=== PATIENT | male | born 1965 | race Caucasian/White ===

== ENCOUNTER 2018-01-30 18:36 | Inpatient (IN) | payer OTHER ==
[~2018-01-30] VITALS: Ht 185.4 cm; Wt 125.2 kg
[~2018-01-30 18:36] MED LIST: CLEOCIN300 MG PO; LORTAB 5-325 M1 EACH PO; NAPROSYN500 MG PO; ZITHROMAX TRI-500 MG PO
[2018-01-30 19:13] LABS: PLATELET COUNT 590 K/uL (156-360)
[2018-01-30 19:30] LABS: HEMOGLOBIN 12.6 G/DL (12.5-16.6); MCH 29.8 PG (29.0-34.0); MCV 85.1 FL (86-99); RBC DIS.WIDTH-CV 14.5 % (11.8-14.6); RBC DIS.WIDTH-SD 44.9 % (39-53); RED BLOOD COUNT 4.23 M/uL (4.00-5.50)
[2018-01-30 19:32] LABS: WHITE BLOOD COUNT 33.9 K/uL (4.1-10.2)
[2018-01-30 19:34] LABS: TROP-I INTERPRETATION INDETERMINATE; TROPONIN-I 0.46 ng/mL (0.0-0.30)
[2018-01-30 19:55] LABS: ALBUMIN 2.9 g/dL (3.2-4.8); CHLORIDE 94 mEq/L (99-109); POTASSIUM 4.7 mEq/L (3.7-5.4); SODIUM 132 mEq/L (136-147)
[2018-01-30 19:57] LABS: GLUCOSE 123 mg/dL (70-99)
[2018-01-30 19:58] LABS: TOTAL PROTEIN 7.4 g/dL (6.4-8.3)
[2018-01-30 19:59] LABS: TOTAL BILIRUBIN 1.2 mg/dL (0.0-1.0)
[2018-01-30 20:01] LABS: CREATININE 2.1 mg/dL (0.6-1.3); GFR ESTIMATE (CALCULATED) 36 mL/min/ (58.99-99999)
[2018-01-30 20:02] LABS: ALKALINE PHOSPHATASE 173 IU/L (3-129)
[2018-01-30 20:03] LABS: AST (GOT) 124 IU/L (2-34); UREA NITROGEN (BUN) 45 mg/dL (9-23)
[2018-01-30 20:04] LABS: SALICYLATE < 5.0 MG/DL (15-30)
[2018-01-30 20:05] LABS: ACETAMINOPHEN (TYLENOL) < 10 mcg/mL (10-30); ALT (GPT) 173 IU/L (3-49)
[2018-01-30 20:06] LABS: LIPASE 38 U/L (1.0-51.0)
[2018-01-30 20:20] LABS: CREATINE KINASE 463 IU/L (1-294)
[2018-01-30 23:49] LABS: MCV 87.1 FL (86-99)
[2018-01-30 23:54] LABS: APPEARANCE CLOUDY ((CLEAR)); BILIRUBIN NEGATIVE; BLOOD LARGE; COLOR AMBER ((YELLOW)); GLUCOSE (STRIP) NEGATIVE; KETONES NEGATIVE; LEUKOCYTES NEGATIVE; NITRITE NEGATIVE; PROTEIN (STRIP) 100; SPECIFIC GRAVITY 1.018 (1.000-1.030)
[2018-01-30 23:59] LABS: CHLORIDE 98 mEq/L (99-109); POTASSIUM 4.4 mEq/L (3.7-5.4); SODIUM 133 mEq/L (136-147)
[2018-01-30 23:59] LABS: BACTERIA RARE /HPF; EPITHELIAL CELLS RARE /HPF; HYALINE CASTS 0-5 /LPF; MUCUS NONE SEEN /LPF; RED BLOOD CELLS TNTC /HPF (0-5); UCUL ADDED? YES
[2018-01-31] VITALS (24 sets, daily range): BP systolic 92–149; BP diastolic 39–56
[2018-01-31 00:01] LABS: GLUCOSE 135 mg/dL (70-99)
[2018-01-31 00:02] LABS: AMPHETAMINE NEGATIVE (500 ng/mL); BARBITURATES NEGATIVE (200 ng/mL); BENZODIAZEPINES NEGATIVE (150 ng/mL); BUPRENORPHINE NEGATIVE (10 ng/mL); COCAINE NEGATIVE (150 ng/mL); METHADONE PRESUMPTIVE POSITIVE (200 ng/mL); METHAMPHETAMINE NEGATIVE (500 ng/mL); OPIATES (MORPHINE) NEGATIVE (100 ng/mL); OXYCODONE NEGATIVE (100 ng/mL); PHENCYCLIDINE NEGATIVE (25 ng/mL); PROPOXYPHENE NEGATIVE (300 ng/mL); THC CANNABINOIDS NEGATIVE (50 ng/mL); TRICYCLIC ANTIDEPRESSANTS NEGATIVE (300 ng/mL)
[2018-01-31 00:05] LABS: CREATININE 1.8 mg/dL (0.6-1.3); GFR ESTIMATE (CALCULATED) 43 mL/min/ (58.99-99999); UREA NITROGEN (BUN) 41 mg/dL (9-23)
[2018-01-31 00:07] LABS: ACETAMINOPHEN (TYLENOL) < 10 mcg/mL (10-30)
[2018-01-31 00:50] LABS: TROP-I INTERPRETATION INDETERMINATE; TROPONIN-I 0.42 ng/mL (0.0-0.30)
[2018-01-31 01:10] LABS: BASE EXCESS -1.1 mEq/L (-3 to +3); BICARBONATE 26.3 mEq/L (22-26); METHEMOGLOBIN 1.8 % (0-1.5); PCO2 56 mm Hg (35-45); PO2 60 mm Hg (80-100); pH 7.28 (7.35-7.45)
[2018-01-31 01:11] LABS: COMMENTS - BLOOD GASES C+; DEVICE VENT; FI02 100 %; MECHANICAL RATE 18 resp/min; MODE AC; PEEP 5 CM/H20; SITE RR; TIDAL VOLUME 500 ML; TOTAL RESP RATE 21 resp/min
[2018-01-31 04:20] LABS: HEMATOCRIT 30.4 % (38.0-50.0); HEMOGLOBIN 10.1 G/DL (12.5-16.6); MCH 29.2 PG (29.0-34.0); MCHC 33.2 G/DL (30.0-36.0); MCV 87.9 FL (86-99); RBC DIS.WIDTH-CV 14.5 % (11.8-14.6); RBC DIS.WIDTH-SD 46.7 % (39-53); RED BLOOD COUNT 3.46 M/uL (4.00-5.50); WHITE BLOOD COUNT 32.4 K/uL (4.1-10.2)
[2018-01-31 04:23] LABS: INTER. NORMALIZED RATIO 1.7
[2018-01-31 04:26] LABS: ALBUMIN 2.3 g/dL (3.2-4.8); CHLORIDE 100 mEq/L (99-109); POTASSIUM 4.4 mEq/L (3.7-5.4); SODIUM 133 mEq/L (136-147)
[2018-01-31 04:27] LABS: MAGNESIUM 1.9 mg/dL (1.3-2.7)
[2018-01-31 04:29] LABS: GLUCOSE 118 mg/dL (70-99)
[2018-01-31 04:33] LABS: CREATININE 1.8 mg/dL (0.6-1.3); GFR ESTIMATE (CALCULATED) 43 mL/min/ (58.99-99999)
[2018-01-31 04:34] LABS: AST (GOT) 89 IU/L (2-34); UREA NITROGEN (BUN) 40 mg/dL (9-23)
[2018-01-31 04:35] LABS: ALT (GPT) 122 IU/L (3-49)
[2018-01-31 04:37] LABS: ALKALINE PHOSPHATASE 128 IU/L (3-129); TOTAL BILIRUBIN 0.7 mg/dL (0.0-1.0); TOTAL PROTEIN 5.9 g/dL (6.4-8.3)
[2018-01-31 05:20] LABS: HEMATOLOGY COMMENT 1 SN; PLAT.SUFFICIENCY ADEQUATE
[2018-01-31 05:21] LABS: PLATELET COUNT UNABLE TO REPORT K/uL (156-360)
[2018-01-31 06:13] LABS: BASE EXCESS 0.3 mEq/L (-3 to +3); BICARBONATE 25.4 mEq/L (22-26); CARBOXY HGB 1.5 % (0-5); COMMENTS - BLOOD GASES C+; DEVICE VENT; FI02 100 %; METHEMOGLOBIN 1.8 % (0-1.5); PCO2 42 mm Hg (35-45); PO2 179 mm Hg (80-100); SITE RR; pH 7.39 (7.35-7.45)
[2018-01-31 06:14] LABS: MECHANICAL RATE 22 resp/min; MODE AC; PEEP 10 CM/H20; TIDAL VOLUME 500 ML; TOTAL RESP RATE 22 resp/min
[2018-01-31 07:44] LABS: TROP-I INTERPRETATION INDETERMINATE; TROPONIN-I 0.47 ng/mL (0.0-0.30)
[2018-01-31] MEDS ORDERED: METHADONE10 MG PO (12:13)
[2018-01-31] MEDS ORDERED: OXYCODONE HCL30 MG PO (12:14)
[2018-01-31 16:07] LABS: INTER. NORMALIZED RATIO 1.5
[2018-01-31 16:09] LABS: PTT 24.8 SEC (25-37)
[2018-02-01] VITALS (28 sets, daily range): BP systolic 96–142; BP diastolic 40–68
[2018-02-01 05:35] LABS: HEMATOCRIT 28.5 % (38.0-50.0); HEMOGLOBIN 9.1 G/DL (12.5-16.6); MCH 28.8 PG (29.0-34.0); MCHC 31.9 G/DL (30.0-36.0); MCV 90.2 FL (86-99); PLATELET COUNT 376 K/uL (156-360); RBC DIS.WIDTH-CV 14.9 % (11.8-14.6); RBC DIS.WIDTH-SD 49.1 % (39-53); RED BLOOD COUNT 3.16 M/uL (4.00-5.50); WHITE BLOOD COUNT 20.8 K/uL (4.1-10.2)
[2018-02-01 06:24] LABS: ALKALINE PHOSPHATASE 88 IU/L (3-129); ALT (GPT) 79 IU/L (3-49); AST (GOT) 70 IU/L (2-34); CHLORIDE 105 MEQ/L (99-109); CREATININE 1.4 MG/DL (0.6-1.3); GFR ESTIMATE (CALCULATED) 57 mL/min/ (58.99-99999); GLUCOSE 131 mg/dL (70-99); MAGNESIUM 2.3 mg/dl (1.3-2.7); PHOSPHORUS 3.1 mg/dL (2.5-4.9); POTASSIUM 4.8 MEQ/L (3.7-5.4); SODIUM 138 MEQ/L (136-147); TOTAL BILIRUBIN 0.5 MG/DL (0.0-1.0); TOTAL PROTEIN 5.1 G/DL (6.4-8.3); UREA NITROGEN (BUN) 34 mg/dL (9-23)
[2018-02-01 18:06] LABS: CSF PROTEIN 115 mg/dL (15-45)
[2018-02-01 18:17] LABS: APPEARANCE SL.HAZY/COLORLESS; CSF TUBE NUMBER TUBE #4; RED CELL COUNT 18 /MM^3 (0-1); WHITE CELL COUNT 315 /MM^3 (0-5)
[2018-02-01 18:56] LABS: CSF EOSINOPHILS 0 % (0-25); MONONUCLEAR WBC'S 54 % (50-90); POLYNUCLEAR WBC'S 46 % (0-3)
[2018-02-01 19:01] LABS: BODY FLUID GLUCOSE 59 MG/DL
[2018-02-01 19:04] LABS: APPEARANCE (RECHECK) SL.HAZY/COLORLESS; CSF TUBE NUMBER (RECHECK) TUBE #1
[2018-02-01 19:05] LABS: RED CELL COUNT (RECHECK) 28 /MM^3 (0-1)
[2018-02-02] VITALS (23 sets, daily range): BP systolic 114–165; BP diastolic 45–69
[2018-02-03] VITALS (23 sets, daily range): BP systolic 104–151; BP diastolic 45–65
[2018-02-03 06:22] LABS: BICARBONATE 22.2 mEq/L (22-26); CARBOXY HGB 1.6 % (0-5); COMMENTS - BLOOD GASES C+; DEVICE VENT; FI02 50 %; INSPIRATION TIME 0.7 seconds; MECHANICAL RATE 22 resp/min; METHEMOGLOBIN 1.5 % (0-1.5); MODE AC VC+; PCO2 35 mm Hg (35-45); PO2 74 mm Hg (80-100); SITE RR; TIDAL VOLUME 500 ML; TOTAL RESP RATE 26 resp/min; pH 7.41 (7.35-7.45)
[2018-02-03 06:23] LABS: PEEP 14 CM/H20
[2018-02-03 11:18] LABS: HEPATITIS B SURFACE ANTIGEN Nonreactive; HEPATITIS C ANTIBODY Nonreactive
[2018-02-04] VITALS (23 sets, daily range): BP systolic 117–144; BP diastolic 45–62
[2018-02-04 06:53] LABS: HEMATOCRIT 27.4 % (38.0-50.0); HEMOGLOBIN 8.8 G/DL (12.5-16.6); MCHC 32.1 G/DL (30.0-36.0); MCV 90.4 FL (86-99); PLATELET COUNT 361 K/uL (156-360); RBC DIS.WIDTH-CV 15.1 % (11.8-14.6); RBC DIS.WIDTH-SD 50.2 % (39-53); RED BLOOD COUNT 3.03 M/uL (4.00-5.50); WHITE BLOOD COUNT 12.1 K/uL (4.1-10.2)
[2018-02-04 07:16] LABS: ALBUMIN 2.3 G/DL (3.2-4.8); ALKALINE PHOSPHATASE 63 IU/L (3-129); ALT (GPT) 64 IU/L (3-49); AST (GOT) 62 IU/L (2-34); CHLORIDE 111 MEQ/L (99-109); CREATININE 1.3 MG/DL (0.6-1.3); DIRECT BILIRUBIN 0.1 mg/dL (0.0-0.3); GFR ESTIMATE (CALCULATED) > 59 mL/min/ (58.99-99999); GLUCOSE 147 mg/dL (70-99); POTASSIUM 5.2 MEQ/L (3.7-5.4); SODIUM 143 MEQ/L (136-147); TOTAL BILIRUBIN 0.4 MG/DL (0.0-1.0); TOTAL PROTEIN 5.4 G/DL (6.4-8.3); UREA NITROGEN (BUN) 51 mg/dL (9-23)
[2018-02-04 22:15] LABS: HEMATOCRIT 29.2 % (38.0-50.0); HEMOGLOBIN 9.2 G/DL (12.5-16.6); MCH 28.3 PG (29.0-34.0); MCHC 31.5 G/DL (30.0-36.0); MCV 89.8 FL (86-99); PLATELET COUNT 381 K/uL (156-360); RBC DIS.WIDTH-CV 14.9 % (11.8-14.6); RBC DIS.WIDTH-SD 49.2 % (39-53); RED BLOOD COUNT 3.25 M/uL (4.00-5.50); WHITE BLOOD COUNT 15.1 K/uL (4.1-10.2)
[2018-02-04 22:26] LABS: BASE EXCESS -1.3 mEq/L (-3 to +3); BICARBONATE 22.2 mEq/L (22-26); CARBOXY HGB 1.6 % (0-5); METHEMOGLOBIN 1.5 % (0-1.5); PCO2 32 mm Hg (35-45); PO2 65 mm Hg (80-100); pH 7.45 (7.35-7.45)
[2018-02-04 22:27] LABS: COMMENTS - BLOOD GASES C+A+; DEVICE VENT; FI02 40 %; INSPIRATION TIME 0.7 seconds; MECHANICAL RATE 22 resp/min; MODE AC; PEEP 8 CM/H20; SITE RR; TIDAL VOLUME 500 ML; TOTAL RESP RATE 31 resp/min
[2018-02-04 22:27] LABS: CHLORIDE 112 MEQ/L (99-109); POTASSIUM 4.8 MEQ/L (3.7-5.4); SODIUM 141 MEQ/L (136-147)
[2018-02-04 22:32] LABS: CREATININE 1.1 MG/DL (0.6-1.3); GFR ESTIMATE (CALCULATED) > 59 mL/min/ (58.99-99999); GLUCOSE 156 mg/dL (70-99); UREA NITROGEN (BUN) 52 mg/dL (9-23)
[2018-02-05] VITALS (23 sets, daily range): BP systolic 110–160; BP diastolic 42–63
[2018-02-05 05:17] LABS: BASOPHIL (%) 0.1 % (0-1); EOSINOPHIL (%) 0.1 % (0-5); HEMOGLOBIN 9.1 G/DL (12.5-16.6); IMMATURE GRANULOCYTE (%) 1.4 % (0.0-0.7); LYMPHOCYTE (%) 5.3 % (15-42); LYMPHOCYTE COUNT 0.8 K/uL (1.0-2.8); MCH 28.7 PG (29.0-34.0); MCHC 31.4 G/DL (30.0-36.0); MCV 91.5 FL (86-99); MONOCYTE (%) 4.5 % (3-12); MONOCYTE COUNT 0.7 K/uL (0-0.8); NEUTROPHIL (%) 88.6 % (45-76); NEUTROPHIL COUNT 13.2 K/uL (1.8-6.4); PLATELET COUNT 357 K/uL (156-360); RBC DIS.WIDTH-CV 15.2 % (11.8-14.6); RBC DIS.WIDTH-SD 50.6 % (39-53); RED BLOOD COUNT 3.17 M/uL (4.00-5.50)
[2018-02-05 05:58] LABS: ALBUMIN 2.3 G/DL (3.2-4.8); ALKALINE PHOSPHATASE 59 IU/L (3-129); ALT (GPT) 74 IU/L (3-49); AST (GOT) 52 IU/L (2-34); CHLORIDE 109 MEQ/L (99-109); CREATININE 1.1 MG/DL (0.6-1.3); GFR ESTIMATE (CALCULATED) > 59 mL/min/ (58.99-99999); GLUCOSE 136 mg/dL (70-99); MAGNESIUM 2.5 mg/dl (1.3-2.7); PHOSPHORUS 4.8 mg/dL (2.5-4.9); POTASSIUM 5.1 MEQ/L (3.7-5.4); SODIUM 141 MEQ/L (136-147); TOTAL BILIRUBIN 0.3 MG/DL (0.0-1.0); TOTAL PROTEIN 5.4 G/DL (6.4-8.3); UREA NITROGEN (BUN) 52 mg/dL (9-23)
[2018-02-06] VITALS (22 sets, daily range): BP systolic 114–152; BP diastolic 43–61
[2018-02-06 10:13] LABS: C DIFF TOXIN NEGATIVE (NEGATIVE)
[2018-02-06 19:21] LABS: BASOPHIL (%) 0.1 % (0-1); EOSINOPHIL (%) 0 % (0-5); HEMATOCRIT 30.8 % (38.0-50.0); HEMOGLOBIN 9.7 G/DL (12.5-16.6); LYMPHOCYTE COUNT 0.6 K/uL (1.0-2.8); MCH 28.4 PG (29.0-34.0); MCHC 31.5 G/DL (30.0-36.0); MCV 90.1 FL (86-99); MONOCYTE (%) 4.7 % (3-12); MONOCYTE COUNT 0.8 K/uL (0-0.8); NEUTROPHIL (%) 89.2 % (45-76); NEUTROPHIL COUNT 14.2 K/uL (1.8-6.4); PLATELET COUNT 344 K/uL (156-360); RBC DIS.WIDTH-SD 49.5 % (39-53); RED BLOOD COUNT 3.42 M/uL (4.00-5.50); WHITE BLOOD COUNT 15.9 K/uL (4.1-10.2)
[2018-02-07] VITALS (18 sets, daily range): BP systolic 122–173; BP diastolic 51–73
[2018-02-07 05:05] LABS: BASOPHIL (%) 0.1 % (0-1); EOSINOPHIL (%) 0 % (0-5); HEMATOCRIT 30.3 % (38.0-50.0); HEMOGLOBIN 9.7 G/DL (12.5-16.6); IMMATURE GRANULOCYTE (%) 2.3 % (0.0-0.7); LYMPHOCYTE (%) 6.9 % (15-42); MCH 29.2 PG (29.0-34.0); MCV 91.3 FL (86-99); MONOCYTE (%) 6.1 % (3-12); MONOCYTE COUNT 0.9 K/uL (0-0.8); NEUTROPHIL (%) 84.6 % (45-76); NEUTROPHIL COUNT 11.8 K/uL (1.8-6.4); PLATELET COUNT 322 K/uL (156-360); RBC DIS.WIDTH-CV 15.2 % (11.8-14.6); RBC DIS.WIDTH-SD 49.9 % (39-53); RED BLOOD COUNT 3.32 M/uL (4.00-5.50)
[2018-02-07 05:31] LABS: POTASSIUM 4.7 mEq/L (3.7-5.4); SODIUM 141 mEq/L (136-147)
[2018-02-07 05:32] LABS: CHLORIDE 112 mEq/L (99-109); MAGNESIUM 2.1 mg/dL (1.3-2.7)
[2018-02-07 05:34] LABS: GLUCOSE 140 mg/dL (70-99)
[2018-02-07 05:37] LABS: GFR ESTIMATE (CALCULATED) > 59 mL/min/ (58.99-99999); PHOSPHORUS 4.2 mg/dL (2.5-4.9)
[2018-02-07 05:38] LABS: UREA NITROGEN (BUN) 55 mg/dL (9-23)
[2018-02-07 11:43] LABS: BASE EXCESS -0.6 mEq/L (-3 to +3); BICARBONATE 22.3 mEq/L (22-26); CARBOXY HGB 1.6 % (0-5); COMMENTS - BLOOD GASES A+C+; DEVICE VENT; FI02 40 %; METHEMOGLOBIN 1.8 % (0-1.5); MODE SPONT TC; PCO2 30 mm Hg (35-45); PO2 58 mm Hg (80-100); SITE LR; TOTAL RESP RATE 33 resp/min; pH 7.48 (7.35-7.45)
[2018-02-07 11:44] LABS: PEEP 8 CM/H20
[2018-02-08] VITALS (24 sets, daily range): BP systolic 114–167; BP diastolic 45–74
[2018-02-08 05:56] LABS: BASOPHIL (%) 0.3 % (0-1); EOSINOPHIL (%) 0 % (0-5); HEMATOCRIT 33.4 % (38.0-50.0); HEMOGLOBIN 10.5 G/DL (12.5-16.6); IMMATURE GRANULOCYTE (%) 2.5 % (0.0-0.7); LYMPHOCYTE (%) 5.1 % (15-42); LYMPHOCYTE COUNT 0.7 K/uL (1.0-2.8); MCH 28.5 PG (29.0-34.0); MCHC 31.4 G/DL (30.0-36.0); MCV 90.5 FL (86-99); MONOCYTE (%) 7.3 % (3-12); NEUTROPHIL (%) 84.8 % (45-76); NEUTROPHIL COUNT 11.7 K/uL (1.8-6.4); PLATELET COUNT 296 K/uL (156-360); RBC DIS.WIDTH-CV 15.5 % (11.8-14.6); RBC DIS.WIDTH-SD 50.5 % (39-53); RED BLOOD COUNT 3.69 M/uL (4.00-5.50); WHITE BLOOD COUNT 13.8 K/uL (4.1-10.2)
[2018-02-08 06:15] LABS: CHLORIDE 112 MEQ/L (99-109); CREATININE 1.3 MG/DL (0.6-1.3); GFR ESTIMATE (CALCULATED) > 59 mL/min/ (58.99-99999); GLUCOSE 175 mg/dL (70-99); MAGNESIUM 2.3 mg/dl (1.3-2.7); PHOSPHORUS 4.3 mg/dL (2.5-4.9); POTASSIUM 4.2 MEQ/L (3.7-5.4); SODIUM 144 MEQ/L (136-147); UREA NITROGEN (BUN) 60 mg/dL (9-23)
[2018-02-09] VITALS (19 sets, daily range): BP systolic 106–155; BP diastolic 37–65
[2018-02-09 05:03] LABS: BASOPHIL (%) 0.1 % (0-1); EOSINOPHIL (%) 0.1 % (0-5); HEMATOCRIT 33.1 % (38.0-50.0); HEMOGLOBIN 10.4 G/DL (12.5-16.6); IMMATURE GRANULOCYTE (%) 1.3 % (0.0-0.7); LYMPHOCYTE (%) 7.2 % (15-42); LYMPHOCYTE COUNT 1.1 K/uL (1.0-2.8); MCH 29.1 PG (29.0-34.0); MCHC 31.4 G/DL (30.0-36.0); MCV 92.5 FL (86-99); MONOCYTE (%) 7.6 % (3-12); MONOCYTE COUNT 1.2 K/uL (0-0.8); NEUTROPHIL (%) 83.7 % (45-76); NEUTROPHIL COUNT 13.1 K/uL (1.8-6.4); PLATELET COUNT 230 K/uL (156-360); RBC DIS.WIDTH-CV 15.8 % (11.8-14.6); RBC DIS.WIDTH-SD 52.4 % (39-53); RED BLOOD COUNT 3.58 M/uL (4.00-5.50); WHITE BLOOD COUNT 15.6 K/uL (4.1-10.2)
[2018-02-09 05:29] LABS: CHLORIDE 115 MEQ/L (99-109); CREATININE 1.2 MG/DL (0.6-1.3); GFR ESTIMATE (CALCULATED) > 59 mL/min/ (58.99-99999); GLUCOSE 168 mg/dL (70-99); MAGNESIUM 2.4 mg/dl (1.3-2.7); PHOSPHORUS 4.3 mg/dL (2.5-4.9); POTASSIUM 4.1 MEQ/L (3.7-5.4); SODIUM 148 MEQ/L (136-147); UREA NITROGEN (BUN) 56 mg/dL (9-23)
[2018-02-10] VITALS (23 sets, daily range): BP systolic 98–130; BP diastolic 41–61
[2018-02-10 04:52] LABS: BASOPHIL (%) 0.1 % (0-1); EOSINOPHIL (%) 0.1 % (0-5); HEMATOCRIT 32.5 % (38.0-50.0); HEMOGLOBIN 10.2 G/DL (12.5-16.6); IMMATURE GRANULOCYTE (%) 0.7 % (0.0-0.7); LYMPHOCYTE (%) 5.1 % (15-42); LYMPHOCYTE COUNT 0.8 K/uL (1.0-2.8); MCH 29.2 PG (29.0-34.0); MCHC 31.4 G/DL (30.0-36.0); MCV 93.1 FL (86-99); MONOCYTE (%) 4.8 % (3-12); MONOCYTE COUNT 0.7 K/uL (0-0.8); NEUTROPHIL (%) 89.2 % (45-76); NEUTROPHIL COUNT 13.7 K/uL (1.8-6.4); PLATELET COUNT 230 K/uL (156-360); RBC DIS.WIDTH-CV 15.8 % (11.8-14.6); RED BLOOD COUNT 3.49 M/uL (4.00-5.50); WHITE BLOOD COUNT 15.4 K/uL (4.1-10.2)
[2018-02-10 05:04] LABS: CHLORIDE 120 mEq/L (99-109); POTASSIUM 4.3 mEq/L (3.7-5.4); SODIUM 152 mEq/L (136-147)
[2018-02-10 05:05] LABS: MAGNESIUM 2.4 mg/dL (1.3-2.7)
[2018-02-10 05:06] LABS: GLUCOSE 179 mg/dL (70-99)
[2018-02-10 05:11] LABS: GFR ESTIMATE (CALCULATED) > 59 mL/min/ (58.99-99999); UREA NITROGEN (BUN) 61 mg/dL (9-23)
[2018-02-11] VITALS (23 sets, daily range): BP systolic 102–165; BP diastolic 43–64
[2018-02-11 07:48] LABS: BASOPHIL (%) 0.1 % (0-1); EOSINOPHIL (%) 0.1 % (0-5); HEMATOCRIT 31.9 % (38.0-50.0); HEMOGLOBIN 9.8 G/DL (12.5-16.6); IMMATURE GRANULOCYTE (%) 0.9 % (0.0-0.7); LYMPHOCYTE (%) 7.2 % (15-42); MCH 28.9 PG (29.0-34.0); MCHC 30.7 G/DL (30.0-36.0); MCV 94.1 FL (86-99); MONOCYTE (%) 5.6 % (3-12); MONOCYTE COUNT 0.8 K/uL (0-0.8); NEUTROPHIL (%) 86.1 % (45-76); NEUTROPHIL COUNT 12.4 K/uL (1.8-6.4); PLATELET COUNT 223 K/uL (156-360); RBC DIS.WIDTH-CV 16.1 % (11.8-14.6); RED BLOOD COUNT 3.39 M/uL (4.00-5.50); WHITE BLOOD COUNT 14.4 K/uL (4.1-10.2)
[2018-02-11 08:13] LABS: CHLORIDE 123 MEQ/L (99-109); CREATININE 1.1 MG/DL (0.6-1.3); GFR ESTIMATE (CALCULATED) > 59 mL/min/ (58.99-99999); GLUCOSE 136 mg/dL (70-99); MAGNESIUM 2.4 mg/dl (1.3-2.7); PHOSPHORUS 3.6 mg/dL (2.5-4.9); POTASSIUM 4.3 MEQ/L (3.7-5.4); SODIUM 155 MEQ/L (136-147); UREA NITROGEN (BUN) 50 mg/dL (9-23)
[2018-02-12] VITALS (16 sets, daily range): BP systolic 102–131; BP diastolic 42–63
[2018-02-12 05:16] LABS: BASOPHIL (%) 0.2 % (0-1); EOSINOPHIL (%) 0.1 % (0-5); HEMOGLOBIN 9.4 G/DL (12.5-16.6); IMMATURE GRANULOCYTE (%) 0.8 % (0.0-0.7); LYMPHOCYTE (%) 8.3 % (15-42); MCH 29.7 PG (29.0-34.0); MCHC 31.3 G/DL (30.0-36.0); MCV 94.6 FL (86-99); MONOCYTE (%) 5.7 % (3-12); MONOCYTE COUNT 0.7 K/uL (0-0.8); NEUTROPHIL (%) 84.9 % (45-76); NEUTROPHIL COUNT 10.2 K/uL (1.8-6.4); PLATELET COUNT 195 K/uL (156-360); RBC DIS.WIDTH-SD 54.8 % (39-53); RED BLOOD COUNT 3.17 M/uL (4.00-5.50); WHITE BLOOD COUNT 11.9 K/uL (4.1-10.2)
[2018-02-12 05:28] LABS: BASE EXCESS -1.9 mEq/L (-3 to +3); BICARBONATE 20.9 mEq/L (22-26); CARBOXY HGB 1.9 % (0-5); METHEMOGLOBIN 1.4 % (0-1.5); PCO2 28 mm Hg (35-45); PO2 61 mm Hg (80-100); pH 7.48 (7.35-7.45)
[2018-02-12 05:29] LABS: COMMENTS - BLOOD GASES C+; DEVICE VENT; FI02 40 %; MECHANICAL RATE 22 resp/min; MODE ACVC+; PEEP 5 CM/H20; SITE LR; TIDAL VOLUME 500 ML; TOTAL RESP RATE 30 resp/min
[2018-02-12 05:52] LABS: ALBUMIN 2.3 G/DL (3.2-4.8); ALKALINE PHOSPHATASE 44 IU/L (3-129); ALT (GPT) 489 IU/L (3-49); AST (GOT) 108 IU/L (2-34); CHLORIDE 122 MEQ/L (99-109); CREATININE 1.1 MG/DL (0.6-1.3); GFR ESTIMATE (CALCULATED) > 59 mL/min/ (58.99-99999); GLUCOSE 177 mg/dL (70-99); POTASSIUM 4.5 MEQ/L (3.7-5.4); SODIUM 157 MEQ/L (136-147); TOTAL BILIRUBIN 0.5 MG/DL (0.0-1.0); TOTAL PROTEIN 4.9 G/DL (6.4-8.3); UREA NITROGEN (BUN) 49 mg/dL (9-23)
[2018-02-13] VITALS (23 sets, daily range): BP systolic 9–138; BP diastolic 43–64
[2018-02-13 05:47] LABS: BASOPHIL (%) 0.1 % (0-1); EOSINOPHIL (%) 0.1 % (0-5); HEMATOCRIT 29.3 % (38.0-50.0); HEMOGLOBIN 8.9 G/DL (12.5-16.6); IMMATURE GRANULOCYTE (%) 1.1 % (0.0-0.7); LYMPHOCYTE (%) 6.9 % (15-42); MCH 28.7 PG (29.0-34.0); MCHC 30.4 G/DL (30.0-36.0); MCV 94.5 FL (86-99); MONOCYTE (%) 4.8 % (3-12); MONOCYTE COUNT 0.7 K/uL (0-0.8); NEUTROPHIL COUNT 12.6 K/uL (1.8-6.4); PLATELET COUNT 183 K/uL (156-360); RBC DIS.WIDTH-CV 16.5 % (11.8-14.6); RBC DIS.WIDTH-SD 56.3 % (39-53); WHITE BLOOD COUNT 14.4 K/uL (4.1-10.2)
[2018-02-13 06:22] LABS: ALBUMIN 2.4 G/DL (3.2-4.8); ALKALINE PHOSPHATASE 42 IU/L (3-129); ALT (GPT) 380 IU/L (3-49); AST (GOT) 67 IU/L (2-34); CHLORIDE 125 MEQ/L (99-109); CREATININE 1.1 MG/DL (0.6-1.3); GFR ESTIMATE (CALCULATED) > 59 mL/min/ (58.99-99999); GLUCOSE 161 mg/dL (70-99); MAGNESIUM 2.4 mg/dl (1.3-2.7); PHOSPHORUS 4.5 mg/dL (2.5-4.9); POTASSIUM 4.6 MEQ/L (3.7-5.4); SODIUM 158 MEQ/L (136-147); TOTAL BILIRUBIN 0.5 MG/DL (0.0-1.0); TOTAL PROTEIN 4.9 G/DL (6.4-8.3); UREA NITROGEN (BUN) 53 mg/dL (9-23)
[2018-02-14] VITALS (19 sets, daily range): BP systolic 99–185; BP diastolic 38–71
[2018-02-14 05:43] LABS: CHLORIDE 123 mEq/L (99-109); POTASSIUM 4.2 mEq/L (3.7-5.4); SODIUM 155 mEq/L (136-147)
[2018-02-14 05:44] LABS: MAGNESIUM 2.2 mg/dL (1.3-2.7)
[2018-02-14 05:45] LABS: GLUCOSE 149 mg/dL (70-99)
[2018-02-14 05:49] LABS: CREATININE 0.9 mg/dL (0.6-1.3); GFR ESTIMATE (CALCULATED) > 59 mL/min/ (58.99-99999); PHOSPHORUS 4.5 mg/dL (2.5-4.9)
[2018-02-14 05:50] LABS: UREA NITROGEN (BUN) 49 mg/dL (9-23)
[2018-02-14 05:57] LABS: BASOPHIL (%) 0.2 % (0-1); EOSINOPHIL (%) 0.5 % (0-5); EOSINOPHIL COUNT 0.1 K/uL (0-0.3); HEMATOCRIT 30.6 % (38.0-50.0); HEMOGLOBIN 9.3 G/DL (12.5-16.6); IMMATURE GRANULOCYTE (%) 0.8 % (0.0-0.7); LYMPHOCYTE (%) 8.7 % (15-42); LYMPHOCYTE COUNT 1.5 K/uL (1.0-2.8); MCH 29.2 PG (29.0-34.0); MCHC 30.4 G/DL (30.0-36.0); MCV 95.9 FL (86-99); MONOCYTE (%) 3.9 % (3-12); MONOCYTE COUNT 0.7 K/uL (0-0.8); NEUTROPHIL (%) 85.9 % (45-76); NEUTROPHIL COUNT 14.5 K/uL (1.8-6.4); PLATELET COUNT 175 K/uL (156-360); RBC DIS.WIDTH-CV 16.8 % (11.8-14.6); RBC DIS.WIDTH-SD 58.1 % (39-53); RED BLOOD COUNT 3.19 M/uL (4.00-5.50); WHITE BLOOD COUNT 16.9 K/uL (4.1-10.2)
[2018-02-15] VITALS (28 sets, daily range): BP systolic 94–145; BP diastolic 38–77
[2018-02-15 05:09] LABS: BASOPHIL (%) 0.2 % (0-1); EOSINOPHIL COUNT 0.2 K/uL (0-0.3); HEMATOCRIT 30.7 % (38.0-50.0); HEMOGLOBIN 9.4 G/DL (12.5-16.6); IMMATURE GRANULOCYTE (%) 1.4 % (0.0-0.7); LYMPHOCYTE (%) 8.3 % (15-42); LYMPHOCYTE COUNT 1.3 K/uL (1.0-2.8); MCH 29.4 PG (29.0-34.0); MCHC 30.6 G/DL (30.0-36.0); MCV 95.9 FL (86-99); MONOCYTE (%) 4.1 % (3-12); MONOCYTE COUNT 0.6 K/uL (0-0.8); NRBC (%) 0.1 /100 WBC (0-0); PLATELET COUNT 168 K/uL (156-360); RBC DIS.WIDTH-CV 16.8 % (11.8-14.6); RBC DIS.WIDTH-SD 58.3 % (39-53); WHITE BLOOD COUNT 15.3 K/uL (4.1-10.2)
[2018-02-15 05:25] LABS: ALBUMIN 2.6 g/dL (3.2-4.8); CHLORIDE 118 mEq/L (99-109); POTASSIUM 4.3 mEq/L (3.7-5.4); SODIUM 149 mEq/L (136-147)
[2018-02-15 05:28] LABS: GLUCOSE 178 mg/dL (70-99)
[2018-02-15 05:30] LABS: TOTAL BILIRUBIN 0.6 mg/dL (0.0-1.0)
[2018-02-15 05:31] LABS: ALKALINE PHOSPHATASE 57 IU/L (3-129)
[2018-02-15 05:32] LABS: GFR ESTIMATE (CALCULATED) > 59 mL/min/ (58.99-99999)
[2018-02-15 05:33] LABS: AST (GOT) 50 IU/L (2-34); UREA NITROGEN (BUN) 47 mg/dL (9-23)
[2018-02-15 05:34] LABS: ALT (GPT) 276 IU/L (3-49)
[2018-02-16] VITALS (18 sets, daily range): BP systolic 101–140; BP diastolic 40–68
[2018-02-16 05:37] LABS: HEMATOCRIT 29.1 % (38.0-50.0); HEMOGLOBIN 8.8 G/DL (12.5-16.6); MCH 29.6 PG (29.0-34.0); MCHC 30.2 G/DL (30.0-36.0); PLATELET COUNT 138 K/uL (156-360); RBC DIS.WIDTH-CV 17.2 % (11.8-14.6); RBC DIS.WIDTH-SD 59.8 % (39-53); RED BLOOD COUNT 2.97 M/uL (4.00-5.50); WHITE BLOOD COUNT 16.5 K/uL (4.1-10.2)
[2018-02-16 06:07] LABS: CHLORIDE 119 MEQ/L (99-109); CREATININE 1.3 MG/DL (0.6-1.3); GFR ESTIMATE (CALCULATED) > 59 mL/min/ (58.99-99999); GLUCOSE 137 mg/dL (70-99); MAGNESIUM 2.4 mg/dl (1.3-2.7); PHOSPHORUS 4.3 mg/dL (2.5-4.9); POTASSIUM 4.4 MEQ/L (3.7-5.4); SODIUM 153 MEQ/L (136-147); UREA NITROGEN (BUN) 58 mg/dL (9-23)
[2018-02-17] VITALS (23 sets, daily range): BP systolic 96–132; BP diastolic 36–65
[2018-02-18] VITALS (19 sets, daily range): BP systolic 92–126; BP diastolic 31–80
[2018-02-18 04:33] LABS: BASOPHIL (%) 0.1 % (0-1); EOSINOPHIL (%) 0.8 % (0-5); EOSINOPHIL COUNT 0.1 K/uL (0-0.3); HEMATOCRIT 30.1 % (38.0-50.0); HEMOGLOBIN 9.2 G/DL (12.5-16.6); IMMATURE GRANULOCYTE (%) 1.1 % (0.0-0.7); LYMPHOCYTE (%) 9.9 % (15-42); LYMPHOCYTE COUNT 1.5 K/uL (1.0-2.8); MCH 29.7 PG (29.0-34.0); MCHC 30.6 G/DL (30.0-36.0); MCV 97.1 FL (86-99); MONOCYTE COUNT 0.6 K/uL (0-0.8); NEUTROPHIL (%) 84.1 % (45-76); NEUTROPHIL COUNT 12.5 K/uL (1.8-6.4); NRBC (%) 0.3 /100 WBC (0-0); PLATELET COUNT 126 K/uL (156-360); RBC DIS.WIDTH-CV 18.4 % (11.8-14.6); RBC DIS.WIDTH-SD 64.2 % (39-53); WHITE BLOOD COUNT 14.9 K/uL (4.1-10.2)
[2018-02-18 04:42] LABS: CHLORIDE 123 mEq/L (99-109); POTASSIUM 4.1 mEq/L (3.7-5.4); SODIUM 155 mEq/L (136-147)
[2018-02-18 04:43] LABS: GLUCOSE 143 mg/dL (70-99)
[2018-02-18 04:47] LABS: CREATININE 1.3 mg/dL (0.6-1.3); GFR ESTIMATE (CALCULATED) > 59 mL/min/ (58.99-99999)
[2018-02-18 04:48] LABS: UREA NITROGEN (BUN) 62 mg/dL (9-23)
[2018-02-19] VITALS (22 sets, daily range): BP systolic 102–143; BP diastolic 37–65
[2018-02-19 10:56] LABS: BASOPHIL (%) 0.1 % (0-1); EOSINOPHIL (%) 0.8 % (0-5); EOSINOPHIL COUNT 0.1 K/uL (0-0.3); HEMATOCRIT 29.4 % (38.0-50.0); HEMOGLOBIN 8.7 G/DL (12.5-16.6); LYMPHOCYTE (%) 6.9 % (15-42); LYMPHOCYTE COUNT 1.2 K/uL (1.0-2.8); MCHC 29.6 G/DL (30.0-36.0); MONOCYTE (%) 3.7 % (3-12); MONOCYTE COUNT 0.6 K/uL (0-0.8); NEUTROPHIL (%) 87.5 % (45-76); NEUTROPHIL COUNT 14.6 K/uL (1.8-6.4); NRBC (%) 0.8 /100 WBC (0-0); PLATELET COUNT 120 K/uL (156-360); RBC DIS.WIDTH-CV 18.3 % (11.8-14.6); RBC DIS.WIDTH-SD 65.9 % (39-53); WHITE BLOOD COUNT 16.6 K/uL (4.1-10.2)
[2018-02-19 11:26] LABS: CHLORIDE 113 MEQ/L (99-109); CREATININE 1.2 MG/DL (0.6-1.3); GFR ESTIMATE (CALCULATED) > 59 mL/min/ (58.99-99999); GLUCOSE 184 mg/dL (70-99); PHOSPHORUS 3.5 mg/dL (2.5-4.9); POTASSIUM 3.3 MEQ/L (3.7-5.4); SODIUM 147 MEQ/L (136-147); UREA NITROGEN (BUN) 47 mg/dL (9-23)
[2018-02-19 11:37] LABS: MAGNESIUM 2.3 mg/dL (1.3-2.7)
[2018-02-19 12:26] LABS: APPEARANCE CLOUDY ((CLEAR)); BILIRUBIN NEGATIVE; BLOOD LARGE; COLOR AMBER ((YELLOW)); GLUCOSE (STRIP) NEGATIVE; KETONES NEGATIVE; LEUKOCYTES NEGATIVE; NITRITE NEGATIVE; PROTEIN (STRIP) 100; SPECIFIC GRAVITY 1.026 (1.000-1.030); UROBILINOGEN 0.2 MG/DL (0.2-1.0)
[2018-02-19 12:39] LABS: EPITHELIAL CELLS RARE /HPF; MUCUS 1+ /LPF; WHITE BLOOD CELLS RARE /HPF (0-5)
[2018-02-19 12:40] LABS: BACTERIA RARE /HPF; UCUL ADDED? NO
[2018-02-19 12:41] LABS: AMORPHOUS URATES CRYSTALS 1+; COARSE GRANULAR CASTS 0-5 /LPF
[2018-02-20] VITALS (21 sets, daily range): BP systolic 100–139; BP diastolic 33–52
[2018-02-20 06:28] LABS: BASOPHIL (%) 0.1 % (0-1); EOSINOPHIL (%) 1.5 % (0-5); EOSINOPHIL COUNT 0.3 K/uL (0-0.3); HEMATOCRIT 26.3 % (38.0-50.0); HEMOGLOBIN 7.7 G/DL (12.5-16.6); IMMATURE GRANULOCYTE (%) 1.2 % (0.0-0.7); LYMPHOCYTE (%) 7.3 % (15-42); LYMPHOCYTE COUNT 1.2 K/uL (1.0-2.8); MCH 28.8 PG (29.0-34.0); MCHC 29.3 G/DL (30.0-36.0); MCV 98.5 FL (86-99); MONOCYTE (%) 3.5 % (3-12); MONOCYTE COUNT 0.6 K/uL (0-0.8); NEUTROPHIL (%) 86.4 % (45-76); NEUTROPHIL COUNT 14.1 K/uL (1.8-6.4); NRBC (%) 0.5 /100 WBC (0-0); PLATELET COUNT 112 K/uL (156-360); RBC DIS.WIDTH-CV 17.7 % (11.8-14.6); RBC DIS.WIDTH-SD 62.8 % (39-53); RED BLOOD COUNT 2.67 M/uL (4.00-5.50); WHITE BLOOD COUNT 16.4 K/uL (4.1-10.2)
[2018-02-20 06:48] LABS: CHLORIDE 111 MEQ/L (99-109); CREATININE 1.2 MG/DL (0.6-1.3); GFR ESTIMATE (CALCULATED) > 59 mL/min/ (58.99-99999); GLUCOSE 152 mg/dL (70-99); POTASSIUM 3.4 MEQ/L (3.7-5.4); SODIUM 151 MEQ/L (136-147); UREA NITROGEN (BUN) 44 mg/dL (9-23)
[2018-02-20 17:18] LABS: CHLORIDE 111 MEQ/L (99-109); CREATININE 1.1 MG/DL (0.6-1.3); GFR ESTIMATE (CALCULATED) > 59 mL/min/ (58.99-99999); GLUCOSE 156 mg/dL (70-99); SODIUM 150 MEQ/L (136-147); UREA NITROGEN (BUN) 45 mg/dL (9-23)
[2018-02-20 17:19] LABS: POTASSIUM 4.2 MEQ/L (3.7-5.4)
[2018-02-21] VITALS (15 sets, daily range): BP systolic 110–144; BP diastolic 45–68
[2018-02-21 06:17] LABS: BASOPHIL (%) 0.2 % (0-1); EOSINOPHIL (%) 1.1 % (0-5); EOSINOPHIL COUNT 0.2 K/uL (0-0.3); HEMATOCRIT 27.8 % (38.0-50.0); HEMOGLOBIN 8.2 G/DL (12.5-16.6); IMMATURE GRANULOCYTE (%) 1.4 % (0.0-0.7); LYMPHOCYTE (%) 5.6 % (15-42); LYMPHOCYTE COUNT 1.1 K/uL (1.0-2.8); MCHC 29.5 G/DL (30.0-36.0); MCV 98.2 FL (86-99); MONOCYTE (%) 3.8 % (3-12); MONOCYTE COUNT 0.7 K/uL (0-0.8); NEUTROPHIL (%) 87.9 % (45-76); NEUTROPHIL COUNT 16.8 K/uL (1.8-6.4); NRBC (%) 0.7 /100 WBC (0-0); PLATELET COUNT 130 K/uL (156-360); RBC DIS.WIDTH-CV 17.6 % (11.8-14.6); RED BLOOD COUNT 2.83 M/uL (4.00-5.50); WHITE BLOOD COUNT 19.2 K/uL (4.1-10.2)
[2018-02-21 07:32] LABS: CHLORIDE 110 MEQ/L (99-109); CREATININE 1.3 MG/DL (0.6-1.3); GFR ESTIMATE (CALCULATED) > 59 mL/min/ (58.99-99999); GLUCOSE 141 mg/dL (70-99); POTASSIUM 4.1 MEQ/L (3.7-5.4); SODIUM 149 MEQ/L (136-147); UREA NITROGEN (BUN) 48 mg/dL (9-23)
[2018-02-21 12:54] LABS: C DIFF TOXIN NEGATIVE (NEGATIVE)
[2018-02-21 16:09] LABS: BASOPHIL (%) 0.2 % (0-1); EOSINOPHIL (%) 0.8 % (0-5); EOSINOPHIL COUNT 0.2 K/uL (0-0.3); HEMATOCRIT 28.6 % (38.0-50.0); HEMOGLOBIN 8.5 G/DL (12.5-16.6); IMMATURE GRANULOCYTE (%) 2.2 % (0.0-0.7); LYMPHOCYTE (%) 7.2 % (15-42); LYMPHOCYTE COUNT 1.4 K/uL (1.0-2.8); MCH 29.3 PG (29.0-34.0); MCHC 29.7 G/DL (30.0-36.0); MCV 98.6 FL (86-99); MONOCYTE (%) 4.2 % (3-12); MONOCYTE COUNT 0.8 K/uL (0-0.8); NEUTROPHIL (%) 85.4 % (45-76); NEUTROPHIL COUNT 16.2 K/uL (1.8-6.4); NRBC (%) 0.8 /100 WBC (0-0); PLATELET COUNT 150 K/uL (156-360); RBC DIS.WIDTH-CV 17.6 % (11.8-14.6); RBC DIS.WIDTH-SD 63.1 % (39-53)
[2018-02-21 16:19] LABS: INTER. NORMALIZED RATIO 1.3
[2018-02-21 16:27] LABS: PTT 20.5 SEC (25-37)
[2018-02-21 19:06] LABS: CHLORIDE 110 MEQ/L (99-109); CREATININE 1.2 MG/DL (0.6-1.3); GFR ESTIMATE (CALCULATED) > 59 mL/min/ (58.99-99999); GLUCOSE 132 mg/dL (70-99); POTASSIUM 4.6 MEQ/L (3.7-5.4); SODIUM 148 MEQ/L (136-147); UREA NITROGEN (BUN) 47 mg/dL (9-23)
[2018-02-22] VITALS (20 sets, daily range): BP systolic 114–153; BP diastolic 40–70
[2018-02-22 01:12] LABS: POTASSIUM 4.2 mEq/L (3.7-5.4); SODIUM 147 mEq/L (136-147)
[2018-02-22 01:13] LABS: CHLORIDE 110 mEq/L (99-109)
[2018-02-22 01:14] LABS: GLUCOSE 147 mg/dL (70-99)
[2018-02-22 01:18] LABS: CREATININE 1.2 mg/dL (0.6-1.3); GFR ESTIMATE (CALCULATED) > 59 mL/min/ (58.99-99999)
[2018-02-22 01:19] LABS: UREA NITROGEN (BUN) 51 mg/dL (9-23)
[2018-02-22 06:53] LABS: CHLORIDE 109 MEQ/L (99-109); CREATININE 1.2 MG/DL (0.6-1.3); GFR ESTIMATE (CALCULATED) > 59 mL/min/ (58.99-99999); GLUCOSE 138 mg/dL (70-99); POTASSIUM 3.8 MEQ/L (3.7-5.4); SODIUM 149 MEQ/L (136-147); UREA NITROGEN (BUN) 47 mg/dL (9-23)
[2018-02-22 11:22] LABS: TYPE OF FLUID PLEURAL
[2018-02-22 11:23] LABS: TYPE OF FLUID PLEURAL
[2018-02-22 11:48] LABS: APPEARANCE SL. HAZY-YELLOW; BODY FLUID RBC'S 1000 /MM^3 (0-100); BODY FLUID WBC'S 274 /MM^3 (0-500)
[2018-02-22 11:50] LABS: APPEARANCE SL. HAZY-YELLOW; BODY FLUID RBC'S 3000 /MM^3 (0-100); BODY FLUID WBC'S 392 /MM^3 (0-500)
[2018-02-22 12:04] LABS: BODY FLUID GLUCOSE 147 MG/DL; BODY FLUID GLUCOSE 151 MG/DL; BODY FLUID LDH 100 IU/L; BODY FLUID LDH 105 IU/L
[2018-02-22 12:05] LABS: BODY FLUID PROTEIN 1.1 G/DL; BODY FLUID PROTEIN 1.4 G/DL
[2018-02-22 12:24] LABS: CHLORIDE 109 MEQ/L (99-109); CREATININE 1.3 MG/DL (0.6-1.3); GFR ESTIMATE (CALCULATED) > 59 mL/min/ (58.99-99999); GLUCOSE 153 mg/dL (70-99); POTASSIUM 3.9 MEQ/L (3.7-5.4); SODIUM 149 MEQ/L (136-147); UREA NITROGEN (BUN) 47 mg/dL (9-23)
[2018-02-22 12:49] LABS: BODY FLUID EOSINOPHILS 0 % (0-25); MONONUCLEAR WBC'S 19 %; POLYNUCLEAR WBC'S 81 % (0-25)
[2018-02-22 13:01] LABS: BODY FLUID EOSINOPHILS 0 % (0-25); MONONUCLEAR WBC'S 49 %; POLYNUCLEAR WBC'S 51 % (0-25)
[2018-02-22 18:37] LABS: CHLORIDE 106 MEQ/L (99-109); CREATININE 1.2 MG/DL (0.6-1.3); GFR ESTIMATE (CALCULATED) > 59 mL/min/ (58.99-99999); GLUCOSE 128 mg/dL (70-99); POTASSIUM 4.2 MEQ/L (3.7-5.4); SODIUM 145 MEQ/L (136-147); UREA NITROGEN (BUN) 48 mg/dL (9-23)
[2018-02-23] VITALS (15 sets, daily range): BP systolic 124–149; BP diastolic 37–64
[2018-02-23 01:04] LABS: CHLORIDE 106 mEq/L (99-109); POTASSIUM 4.4 mEq/L (3.7-5.4); SODIUM 147 mEq/L (136-147)
[2018-02-23 01:05] LABS: GLUCOSE 138 mg/dL (70-99)
[2018-02-23 01:09] LABS: CREATININE 1.2 mg/dL (0.6-1.3); GFR ESTIMATE (CALCULATED) > 59 mL/min/ (58.99-99999)
[2018-02-23 01:10] LABS: UREA NITROGEN (BUN) 55 mg/dL (9-23)
[2018-02-23 04:43] LABS: CHLORIDE 105 mEq/L (99-109); POTASSIUM 3.9 mEq/L (3.7-5.4); SODIUM 147 mEq/L (136-147)
[2018-02-23 04:45] LABS: GLUCOSE 110 mg/dL (70-99)
[2018-02-23 04:49] LABS: CREATININE 1.2 mg/dL (0.6-1.3); GFR ESTIMATE (CALCULATED) > 59 mL/min/ (58.99-99999)
[2018-02-23 04:50] LABS: UREA NITROGEN (BUN) 57 mg/dL (9-23)
[2018-02-23 08:15] LABS: ALBUMIN 2.6 g/dL (3.2-4.8)
[2018-02-23 08:18] LABS: MAGNESIUM 1.9 mg/dL (1.3-2.7); TOTAL PROTEIN 5.4 g/dL (6.4-8.3)
[2018-02-23 08:20] LABS: TOTAL BILIRUBIN 0.4 mg/dL (0.0-1.0)
[2018-02-23 08:21] LABS: ALKALINE PHOSPHATASE 98 IU/L (3-129); PHOSPHORUS 4.5 mg/dL (2.5-4.9)
[2018-02-23 08:23] LABS: AST (GOT) 155 IU/L (2-34); DIRECT BILIRUBIN 0.3 mg/dL (0.0-0.3)
[2018-02-23 08:24] LABS: ALT (GPT) 229 IU/L (3-49)
[2018-02-23 12:52] LABS: CHLORIDE 105 MEQ/L (99-109); CREATININE 1.3 MG/DL (0.6-1.3); GFR ESTIMATE (CALCULATED) > 59 mL/min/ (58.99-99999); GLUCOSE 149 mg/dL (70-99); POTASSIUM 4.1 MEQ/L (3.7-5.4); SODIUM 147 MEQ/L (136-147); UREA NITROGEN (BUN) 56 mg/dL (9-23)
[2018-02-23 19:02] LABS: CHLORIDE 106 MEQ/L (99-109); CREATININE 1.3 MG/DL (0.6-1.3); GFR ESTIMATE (CALCULATED) > 59 mL/min/ (58.99-99999); GLUCOSE 146 mg/dL (70-99); POTASSIUM 4.1 MEQ/L (3.7-5.4); SODIUM 145 MEQ/L (136-147); UREA NITROGEN (BUN) 58 mg/dL (9-23)
[2018-02-24] VITALS: BP 155/58
[2018-02-24 01:00] LABS: CHLORIDE 105 mEq/L (99-109); POTASSIUM 3.6 mEq/L (3.7-5.4); SODIUM 149 mEq/L (136-147)
[2018-02-24 01:02] LABS: GLUCOSE 171 mg/dL (70-99)
[2018-02-24 01:06] LABS: CREATININE 1.4 mg/dL (0.6-1.3); GFR ESTIMATE (CALCULATED) 57 mL/min/ (58.99-99999)
[2018-02-24 01:07] LABS: UREA NITROGEN (BUN) 60 mg/dL (9-23)
[2018-02-24 02:00] VITALS: BP 127/48
[2018-02-24 05:19] LABS: CHLORIDE 106 mEq/L (99-109); POTASSIUM 3.8 mEq/L (3.7-5.4); SODIUM 151 mEq/L (136-147)
[2018-02-24 05:20] LABS: GLUCOSE 137 mg/dL (70-99)
[2018-02-24 05:24] LABS: CREATININE 1.4 mg/dL (0.6-1.3); GFR ESTIMATE (CALCULATED) 57 mL/min/ (58.99-99999)
[2018-02-24 05:25] LABS: UREA NITROGEN (BUN) 64 mg/dL (9-23)
[2018-02-24 06:00] VITALS: BP 148/74
[2018-02-24 07:02] VITALS: BP 156/48
[2018-02-24 08:02] VITALS: BP 147/46
[2018-02-24 09:02] VITALS: BP 135/52
== END 2018-02-24 09:55 | DRG 4 ==
LOC: EME 18:36 → EDOF 23:21 → 4WEST 23:21 → ENRESERV 23:24 → 4WEST 01-31 00:26
PROVIDERS: Emergency Medicine; Internal Medicine; Internal Medicine Critical Care Medicine; Internal Medicine Infectious Disease; Obstetrics & Gynecology; Physician Assistant; Specialist; Surgery
DX: A40.3 Sepsis due to Streptococcus pneumoniae (principal); R65.20 Severe sepsis without septic shock; J69.0 Pneumonitis due to inhalation of food and vomit; J13 Pneumonia due to Streptococcus pneumoniae; I33.0 Acute and subacute infective endocarditis; G00.1 Pneumococcal meningitis; J96.01 Acute respiratory failure with hypoxia; J44.0 Chronic obstructive pulmonary disease with (acute) lower respiratory infection; I63.40 Cerebral infarction due to embolism of unspecified cerebral artery; G82.50 Quadriplegia, unspecified; I11.0 Hypertensive heart disease with heart failure; I50.31 Acute diastolic (congestive) heart failure; R13.10 Dysphagia, unspecified; I27.20 Pulmonary hypertension, unspecified; E87.0 Hyperosmolality and hypernatremia; N17.9 Acute kidney failure, unspecified; F10.20 Alcohol dependence, uncomplicated; Z66 Do not resuscitate; Z51.5 Encounter for palliative care; T40.3X1A Poisoning by methadone, accidental (unintentional), initial encounter; T40.2X1A Poisoning by other opioids, accidental (unintentional), initial encounter; I08.3 Combined rheumatic disorders of mitral, aortic and tricuspid valves; F17.210 Nicotine dependence, cigarettes, uncomplicated; E66.9 Obesity, unspecified; Z68.35 Body mass index [BMI] 35.0-35.9, adult; Z59.0 Homelessness; Z91.14 Patient's other noncompliance with medication regimen; Z88.0 Allergy status to penicillin
CPT/HCPCS: 36600; 70450; 70553; 71045; 71250; 74176; 76942; 80048; 80048 91; 80053; 80076; 80170; 80202; 81003; 82248; 82550 91; 82803; 82945; 83605; 83615 91; 83690; 83735; 83880; 84100; 84157; 84484; 85014; 85018; 85025; 85025 91; 85027; 85610; 85730; 86617 90; 86618 90; 86803; 86850; 86900; 86901; 87040; 87070; 87075; 87077; 87086; 87106; 87116; 87185; 87205; 87206; 87252 90; 87340; 87493; 87502; 87529 90; 87641; 87801; 87899; 88108; 88305; 89051; 90686; 93005; 93306; 94002; 94003; 94640; 94640 76; 94667; 94668; 94760; 94799; 95819; 97530 GP; 99202; 99281; 99285; C1751; C9113; G0480; G0515 GO; J0131; J0690; J0696; J1160; J1205; J1580; J1630; J1644; J1885; J1940; J1956; J2060; J2250; J2405; J2704; J2920; J2930; J3010; J3370; J7030; J7042; J7050; J7070; J7120; P9017; P9047; S0028; S0030